=== PATIENT | female | born 1960 | race Hispanic/Latino ===

== ENCOUNTER 2019-03-08 09:05 | Emergency (ER) | payer OTHER ==
[2019-03-08] MEDS ORDERED: ACETAMINOPHEN EXTRA STRENGTH 500 MG TABLET ONE (09:30)
[2019-03-08 09:51] LABS: EOSINOPHILS % (AUTO) 2.9 % (0.0-8.0); HEMATOCRIT 46.5 % (36-48); LYMPHOCYTES % (AUTO) 22.2 % (21.0-51.0); MEAN CORPUSCULAR HGB CONC 33.6 g/dL (32.0-36.0); MEAN CORPUSCULAR VOLUME 92.4 fL (79-99); MONOCYTES % (AUTO) 10.5 % (3.0-13.0); NEUTROPHILS % (AUTO) 63.4 % (40.0-77.0); PLATELET COUNT (AUTO) 242 K/uL (130-400); RED BLOOD CELL COUNT(AUTO) 5.03 MIL/uL (4.00-5.50); RED CELL DISTRIBUTION WIDTH 13.5 % (11.0-15.5)
[2019-03-08 10:02] LABS: CREATININE 0.7 mg/dL (0.5-1.5); POTASSIUM 3.8 mmol/L (3.5-5.1)
== END 2019-03-08 11:54 | disposition home or self-care (01) ==
LOC: EDH 09:05
DX: S93.492A Sprain of other ligament of left ankle, initial encounter (principal); S39.012A Strain of muscle, fascia and tendon of lower back, initial encounter; S76.012A Strain of muscle, fascia and tendon of left hip, initial encounter; S46.811A Strain of other muscles, fascia and tendons at shoulder and upper arm level, right arm, initial encounter; E11.9 Type 2 diabetes mellitus without complications; I10 Essential (primary) hypertension; F41.9 Anxiety disorder, unspecified; E78.00 Pure hypercholesterolemia, unspecified; F32.9 Major depressive disorder, single episode, unspecified; Z87.891 Personal history of nicotine dependence; W01.0XXA Fall on same level from slipping, tripping and stumbling without subsequent striking against object, initial encounter; Y93.01 Activity, walking, marching and hiking; Y92.090 Kitchen in other non-institutional residence as the place of occurrence of the external cause; Y99.8 Other external cause status
CPT/HCPCS: 36415; 72100; 72170; 73030; 73600; 73630; 80048; 85025; 93971

== ENCOUNTER → 2020-02-04 | Outpatient (CLI) | payer OTHER | END | disposition home or self-care (01) | LOC: RAH 11:55 | PROVIDERS: ATTEND Internal Medicine Hematology & Oncology | DX: M89.8X9 Other specified disorders of bone, unspecified site (principal); D64.9 Anemia, unspecified; C83.36 Diffuse large B-cell lymphoma, intrapelvic lymph nodes | CPT/HCPCS: 78306; A9503 ==

== ENCOUNTER → 2020-03-06 | Outpatient (CLI) | payer OTHER | END | disposition home or self-care (01) | LOC: OIH 16:04 | PROVIDERS: ATTEND Internal Medicine | DX: M19.041 Primary osteoarthritis, right hand (principal); M19.042 Primary osteoarthritis, left hand; M19.071 Primary osteoarthritis, right ankle and foot; M19.072 Primary osteoarthritis, left ankle and foot; M19.032 Primary osteoarthritis, left wrist; M19.031 Primary osteoarthritis, right wrist | CPT/HCPCS: 73110; 73130; 73630 ==

== ENCOUNTER 2020-04-30 06:53 | Observation (INO) | payer OTHER ==
[2020-04-28 13:00] VITALS: BP 106/59
[2020-04-28 13:29] LABS: BASOPHILS % (AUTO) 0.7 % (0.0-5.0); EOSINOPHILS % (AUTO) 2.8 % (0.0-8.0); HEMATOCRIT 47.2 % (36-48); LYMPHOCYTES % (AUTO) 23.6 % (21.0-51.0); MEAN CORPUSCULAR HEMOGLOBIN 31.4 pg (27.0-33.0); MEAN CORPUSCULAR HGB CONC 32.6 g/dL (32.0-36.0); MEAN CORPUSCULAR VOLUME 96.1 fL (79-99); MONOCYTES % (AUTO) 9.8 % (3.0-13.0); NEUTROPHILS % (AUTO) 62.5 % (40.0-77.0); PLATELET COUNT (AUTO) 296 K/uL (130-400); RED BLOOD CELL COUNT(AUTO) 4.91 MIL/uL (4.00-5.50); RED CELL DISTRIBUTION WIDTH 13.4 % (11.0-15.5); WHITE BLOOD COUNT (AUTO) 8.4 K/uL (4.8-10.8)
[2020-04-28 13:46] LABS: CREATININE 0.5 mg/dL (0.5-1.5); POTASSIUM 4.1 mmol/L (3.5-5.1)
[2020-04-30] VITALS (20 sets, daily range): BP systolic 95–141; BP diastolic 53–70
[~2020-04-30] VITALS: Ht 149.9 cm; Wt 83.5 kg
[2020-04-30] MEDS: CEFAZOLIN SODIUM 1 GM VIAL IVP SCH ×2 (06:00→11:10)
[~2020-04-30 06:53] MED LIST: ACET1TAB25 PO; AEC81 PO; ATOR20TA65 PO; ERGO500014 PO; HYDR-4060 PO; LINA5TAB PO; METF-446 PO; RAMI2.5C16 PO; SERT100T12 PO
[2020-04-30] MEDS ORDERED: SODIUM CHLORIDE 0.9% 1000ML 1,000 ML IV ONE (07:47)
[2020-04-30] MEDS ORDERED: ONDANSETRON HCL 4 MG/2 ML VIAL ONE (09:47)
[2020-04-30] MEDS ORDERED: LIDOCAINE PF 2% 5ML ABBOJECT ONE ×2 (09:47→13:02)
[2020-04-30] MEDS ORDERED: SUCCINYLCHOLINE CHLORIDE 20 MG/ML 10 ML VIAL ONE (09:47)
[2020-04-30] MEDS ORDERED: DEXAMETHASONE SOD PHOSPHATE 10MG/ML 1ML VIAL ONE (09:47)
[2020-04-30] MEDS ORDERED: PROPOFOL 10 MG/ML 20ML VIAL IV ONE (09:47)
[2020-04-30] MEDS ORDERED: FENTANYL CITRATE PF 50 MCG/1 ML 2ML VIAL ONE ×2 (09:48→12:54)
[2020-04-30] MEDS ORDERED: MIDAZOLAM HCL 1 MG/ML 2ML VIAL ONE (09:48)
[2020-04-30] MEDS ORDERED: GLYCOPYRROLATE 1 MG/5 ML SYRINGE ONE (09:48)
[2020-04-30] MEDS ORDERED: ROCURONIUM 10MG/1ML SYR 10 MG/ML ML ONE (09:48)
[2020-04-30] MEDS ORDERED: NEOSTIGMINE 5MG/5ML SYR IV ONE (09:48)
[2020-04-30] MEDS ORDERED: ROPIVACAINE 0.5% 5MG/ML 30ML IJ ONE (10:00)
[2020-04-30] MEDS ORDERED: MEPERIDINE-PF 25 MG/ML SYG ONE ×2 (10:44→13:56)
[2020-04-30] MEDS ORDERED: CEFAZOLIN SODIUM 1 GM VIAL ONE (10:54)
[2020-04-30] MEDS ORDERED: KETOROLAC TROMETHAMINE 30MG/ML ONE (12:04)
[2020-04-30] MEDS ORDERED: SODIUM CHLORIDE 0.9% 1000ML 1,000 ML IV SCH (13:30)
[2020-04-30] MEDS ORDERED: POTASSIUM CHLORIDE 20 MEQ ERTAB PO PRN (13:30)
[2020-04-30] MEDS ORDERED: FERROUS FUMARATE 324 MG TABLET PO PRN (13:30)
[2020-04-30] MEDS ORDERED: CALCIUM CARBONATE 500 MG TABLET PO PRN (13:30)
[2020-04-30] MEDS ORDERED: CEFAZOLIN SODIUM 1 GM VIAL IVP SCH (13:30)
[2020-04-30] MEDS ORDERED: LIDOCAINE HCL-MPF 1% 2ML VIAL IV PRN (13:30)
[2020-04-30] MEDS ORDERED: OXYCODONE HCL 5 MG TAB PO PRN ×2 (13:30)
[2020-04-30] MEDS ORDERED: POTASSIUM CHLORIDE 10% ELIXIR 20 MEQ/15 ML UDCUP PO PRN (13:30)
[2020-04-30] MEDS ORDERED: POTASSIUM CHLORIDE 20MEQ/100ML 100 ML IV PRN (13:30)
[2020-04-30] MEDS ORDERED: DIPHENHYDRAMINE HCL 25 MG CAPSULE PO PRN (13:30)
[2020-04-30] MEDS ORDERED: KETOROLAC TROMETHAMINE 15MG/ML IV PRN (13:30)
[2020-04-30] MEDS ORDERED: TRAMADOL HCL 50 MG TABLET PO PRN (13:30)
[2020-04-30] MEDS ORDERED: DiphenhydrAMINE HCL 50 MG/ML VIAL IVP PRN (13:30)
[2020-04-30] MEDS ORDERED: ACETAMINOPHEN EXTRA STRENGTH 500 MG TABLET PO SCH (13:30)
[2020-04-30] MEDS ORDERED: TEMAZEPAM 15 MG CAPSULE PO PRN (13:30)
[2020-04-30] MEDS ORDERED: PROMETHAZINE HCL 25 MG/ML 1ML AMPULE IM PRN (13:30)
[2020-04-30] MEDS ORDERED: HYDROCODONE/ACETAMINOPHEN 5/325 MG TAB PO PRN (15:30)
[2020-04-30] MEDS ORDERED: INSULIN HUMULIN R 100 UNIT/ML 3ML SQ SCH (16:30)
[2020-04-30] MEDS ORDERED: METFORMIN HCL 500 MG TABLET PO SCH (17:00)
[2020-04-30] MEDS ORDERED: HYDR-4060 PO (17:41)
[2020-04-30] MEDS ORDERED: AEC81 PO (17:41)
[2020-04-30] MEDS ORDERED: CEPH500B PO (17:43)
--- NOTE | 2020-04-30 18:56 | NUR ---
DCP CM met with pt discussed dc plans. Pt is independent prior to surgery, lives at home alone, daughter lives close by. Pt has old standard walker no wheels, bedside commode, shower chair, nebulizer machine, provider 32hrs/wk. Denies any other equipments/services. Feels safe to go back home, daughter able to assist with transportation and needs as necessary. Agreeable for home w/HH and DME. CAROLE signed for [facility] and [facility] as well as [facility] if needed. DC plan to home w/HH and DME. CM to continue to follow up. Addendum: 04/30/20 at 1859 by DARCIE CARY LVN CM Amended: Links added.
--- NOTE | 2020-04-30 18:57 | NUR ---
CM Note: [facility] pending approval CM faxed order, clinicals, PT, covid result to [facility] , confirmation received. Spoke to Debora interiano/NICKI nelson as pt requested. Pending approval at this time. Primary nurse Olga MCDERMOTT aware. CM to continue to follow up.
--- NOTE | 2020-04-30 19:00 | NUR ---
CM Note: [facility] approved CM spoke to Debora interiano/NICKI MON, pt has approval. Pt safe to dc omar as per pt request. Dr Hankins updated. Primary nurse Jenaro MCDERMOTT aware. CM to continue to follow up.
--- NOTE | 2020-04-30 19:12 | NUR ---
CM Note: [facility] pending approval and delivery CM sent order and clinicals to [facility] for standard walker via secured email. Pt verbalized during IA ,"try to request to see if DME will approve new walker." Pt aware CM can't guarantee it will get approved as pt already has own standard walker. Pt pending approval and delivery to home. CM to continue to follow up.
--- NOTE | 2020-04-30 20:10 | NUR ---
D/C PAPERWORK COMPLETE AND D/C REPORT CALLED TO [facility]; THEN I RECEIVED A CALL FROM DR DSOUZA INSTRUCTING ME THAT PT IS NOT TO HAVE HOME HEALTH SO I HAVE CALLED JEREMIAH BACK AT [facility] AND TOLD HER IT HAS BEEN CANCELED; WHEN PRINTING PT'S D/C INSTRUCTIONS THE SCRIPT PRINT OPTION DID NOT WORK CORRECTLY SO I HAVE WRITTEN A SCRIPT FOR BABY ASPIRIN AND KEFLEX FOR PT A TELEPHONE ORDER FROM DR DSOUZA; PT STATED UNDERSTANDING OF ALL D/C INSTRUCTIONS INCLUDING THAT SHE IS TO F/U AT DR DSOUZA OFFICE THIS TUESDAY AND SHE NEEDS TO CALL TOMORROW AM TO GET THE APPOINTMENT; PT STATES SHE ALREADY HAS PAIN PILLS AT HOME [place] AND THAT SHE DOES NOT NEED PAIN PILLS FROM DR DSOUZA. PT'S FAMILY IS WAITING DOWNSTAIRS TO TAKE HER HOME. NOTE PT IS LEAVING A DAY EARLY BECAUSE --- SOON SHE GOT BACK FROM SURGERY AND INTO HER ROOM SHE IS ASKING WHEN SHE IS LEAVING AND I TOLD HER THAT SHE DOES NOT HAVE D/C ORDERS FOR TONIGHT AND SHE IS INSISTANT THAT SHE IS LEAVING TODAY BECAUSE SHE DOES NOT WANT TO CATCH COVID VIRUS IN THE HOSPITAL. I ATTEMPTED TO ASSURE HER THAT WE ARE VERY CAREFULL WITH SANITIZING AND ISOLATION BUT SHE INSISTED THAT SHE IS LEAVING TODAY; I TELEPHONED DR VIERA'S AND HE DID COME AND TALK TO THE PATIENT THEN HE DID D/C HER HOME--INITIALY WITH HOME HEALTH THAT HE THEN CALLED BACK AND CANCELED.
[2020-04-30] MEDS ORDERED: ATORVASTATIN CALCIUM 20 MG TABLET PO SCH (21:00)
[2020-04-30] MEDS ORDERED: LINAGLIPTIN 5 MG TABLET PO SCH (21:00)
[2020-04-30] MEDS ORDERED: LISINOPRIL 10 MG TABLET PO SCH (21:00)
[2020-04-30] MEDS ORDERED: FAMOTIDINE 20MG TAB 20 MG TAB PO SCH (21:00)
[2020-04-30] MEDS ORDERED: ASPIRIN 81MG TAB.CHEW PO SCH (21:00)
[2020-04-30] MEDS ORDERED: SERTRALINE HCL 50 MG TABLET PO SCH (21:00)
[2020-04-30] MEDS ORDERED: CELECOXIB 200 MG CAP PO SCH (21:00)
[2020-04-30] MEDS ORDERED: PREGABALIN 25 MG CAP PO SCH (21:00)
--- NOTE | 2020-05-01 08:56 | NUR ---
CM Note: Verified w/Dr Hankins to cont w/[facility]. CM spoke to Debora w/[facility], verbalized Olga MCDERMOTT called report yesterday, but then called back as Dr Hankins said to cancel HH. Informed Debora will call Dr Hankins to clarify. Will call Isabal w/[facility] back. CM spoke to Dr Hankins clarified cancellation for HH, as per Dr Hankins no contineu w/HH. Initally he wanted to cancel HH as pt wanted to DC same day and was not yet arranged, but when it was arranged and approved he wants pt w/HH on DC. CM called Debora w/[facility] back, informed CM clarified w/Dr Hankins. MD want HH to see pt. As per Debora will schedule appointment to see pt today.
[2020-05-01] MEDS ORDERED: POLYETHYLENE GLYCOL 3350 17 GM POWD.PACK PO SCH (09:00)
[2020-05-01] MEDS ORDERED: VIT D PO SCH (09:00)
[2020-05-01] MEDS ORDERED: PSYLLIUM SEED 1 EACH PACKET PO SCH (12:00)
[2020-05-02] MEDS ORDERED: BISACODYL 5 MG TABLET.DR PO PRN (13:30)
[2020-05-03] MEDS ORDERED: BISACODYL 10 MG SUPP.RECT RC PRN (13:30)
== END 2020-04-30 20:15 | disposition home health service (06) ==
LOC: DAH 06:53 → DAHIP 06:54 → DAH 06:54 → 3BH 14:19
PROVIDERS: ADMIT Orthopaedic Surgery; ATTEND Orthopaedic Surgery
DX: S82.62XA Displaced fracture of lateral malleolus of left fibula, initial encounter for closed fracture (principal); Z20.828 Contact with and (suspected) exposure to other viral communicable diseases; X58.XXXA Exposure to other specified factors, initial encounter; Y93.89 Activity, other specified; Y92.89 Other specified places as the place of occurrence of the external cause; Y99.8 Other external cause status
CPT/HCPCS: 27792; 36415; 73610; 80048; 82948 ×3; 85025; 96360; 96361; 97116; 97161; A4221; A4222; A4223; A4649; A4663; A4930; A6223; C1713 ×5; C1776; C9803; G0378 ×7; G8978; G8979; G8980; G8981; G8982; G8983; J0330; J0690 ×2; J1100; J1885; J2001 ×2; J2175 ×2; J2250; J2405; J2704; J2710; J2795; J3010 ×2; J3490; J7030 ×2; Q4051; U0003

== ENCOUNTER → 2023-04-14 | Outpatient (CLI) | payer OTHER ==
[~2023-04-14] MED LIST changes: +ACET-2079 PO; -ACET1TAB25 PO; +CEPH500B PO; -ERGO500014 PO; +ERGO500093 PO; -RAMI2.5C16 PO; +RAMI2.5C55 PO; +SERT-440 PO; -SERT100T12 PO
== END | disposition home or self-care (01) ==
LOC: RAH 08:07
PROVIDERS: ATTEND Family Medicine
DX: Z12.31 Encounter for screening mammogram for malignant neoplasm of breast (principal)
CPT/HCPCS: 77067

== ENCOUNTER 2025-03-11 07:27 | Day surgery (SDC) | payer OTHER, MEDICAID ==
[~2025-03-11 07:27] MED LIST changes: -RAMI2.5C55 PO; +RAMI2.5C57 PO
[2025-03-11] MEDS: 0.9%NACL 1000ML 1,000 ML IV SCH (08:30)
[2025-03-11 12:50] VITALS: BP 101/53; PULSE 80; RESP 16; TEMP 98.2
--- NOTE | 2025-03-11 12:50 | NUR ---
CT GD MEDIASTINAL BX PROCEDURE PERFORMED BY DR Corin SALAS. PUNCTURE SITE MIDCHEST AND PATIENT TOLERATED PROCEDURE WELL. SPECIMEN X 4 COLLECTED AND SENT TO LAB. END OF PROCEDURE AT 1230. BIOPSY NEEDLE REMOVED AND DRESSING APPLIED. NO BLEEDING NOTED. REPORT GIVEN TO Anabelle HOYOS RN AND PATIENT TRANSPORTED TO DAY PATIENT ROOM 16. AAO X3 WITH NO C/O PAIN.
--- NOTE | 2025-03-11 12:55 | NUR ---
oxygen: pt states uses o2 at home, states o2 levels normal at 80's.
[2025-03-11 13:05] VITALS: BP 108/62; PULSE 85; RESP 19
[2025-03-11] MEDS: MIDAZOLAM HCL 1 MG/ML 2ML VIAL ONE (13:11)
[2025-03-11 13:20] VITALS: BP 118/64; PULSE 84; RESP 20
[2025-03-11 13:35] VITALS: BP 127/67; PULSE 80; RESP 21
[2025-03-11 13:50] VITALS: BP 113/53; PULSE 85; RESP 12
--- NOTE | 2025-03-11 14:17 | NUR ---
REPORT: REPORT GIVEN TO REE WONG. RN
[2025-03-11 14:54] VITALS: BP 117/55; PULSE 82; RESP 12; TEMP 97.4
--- NOTE | 2025-03-11 15:12 | NUR ---
Dr Theodore in to see pt. reports that chest xray was normal, no signs of pneumothorax, pt is okay to be discharged home at this time. pt educated on any sudden development of shortness of breath to call 911 or go to emergency room.
--- NOTE | 2025-03-11 15:13 | HMCIMG ---
CHEST 1VW REASON: post MEDIASTINAL BX COMPARISON: None. FINDINGS: Single view of the chest was obtained. Lungs are clear. Heart size is normal. There is no pulmonary vascular congestion. Mediastinum and bony thorax appear unremarkable. There is a right-sided Port-A-Cath with the tip in superior vena cava. IMPRESSION: 1. No acute process. 2. No pneumothorax post anterior mediastinal biopsy.
--- NOTE | 2025-03-11 15:19 | HMCIMG ---
PROCEDURE: CT-guided right lobe nodule biopsy. INDICATION: CHEST MEDIASTINAL ENLARGED LYMPH NODE TECHNIQUE: Informed written consent was obtained after explaining the procedure and potential complications to the patient . The patient was placed supine on the CT table and images of the chest. Timeout performed. Maximum protection barriers including sterile gown, gloves and mask were utilized. Chest wall was prepped and draped in a sterile fashion. Local anesthesia applied. Using CT guidance, a needle introducer was advanced through the chest wall and into a 10 cm Location right anterior mediastinum and prevascular. 4 passes were made with an 20-gauge Bard biopsy gun coring needle. The needle introducer was removed and sterile dressing applied. Completion images revealed no hemorrhage or pneumothorax. Patient tolerated the exam well and was discharged from the department in good condition. Conscious sedation provided by a registered nurse monitored the patient vital signs throughout and after procedure. Sample sent to the laboratory in normal saline for histology and cultures. Specimen was also sent to RPMI workup. There is mild pneumomediastinum. Blood loss:< 5 mL Complications: None IMPRESSION: CT-guided right right anterior mediastinal prevascular nodule biopsy. Patient is to have follow-up chest radiograph
== END 2025-03-11 15:38 | disposition home or self-care (01) ==
LOC: DAH 07:27 → RAH 07:27 → EDSTATUS 08:00 → RAH 15:38
PROVIDERS: ATTEND Internal Medicine Hematology & Oncology
DX: R59.0 Localized enlarged lymph nodes (principal); I10 Essential (primary) hypertension; F41.9 Anxiety disorder, unspecified; J45.909 Unspecified asthma, uncomplicated; E11.9 Type 2 diabetes mellitus without complications; F32.A Depression, unspecified; K21.9 Gastro-esophageal reflux disease without esophagitis; M19.90 Unspecified osteoarthritis, unspecified site; Z86.2 Personal history of diseases of the blood and blood-forming organs and certain disorders involving the immune mechanism; Z87.891 Personal history of nicotine dependence; Z83.3 Family history of diabetes mellitus; Z82.49 Family history of ischemic heart disease and other diseases of the circulatory system; Z91.013 Allergy to seafood
CPT/HCPCS: 82948; 88184; 88185; 88300; 88305; 71045; 99152; 99153; 32408; A4223 ×3; J3010; J7030; J2250; A4615; A4215; A4222; A4221; A4663; A4216; A4606; 32405; 77012; 88188; G0500